=== PATIENT | female | born 1980 | race Caucasian/White ===

== ENCOUNTER 2020-03-15 07:21 | Emergency (ER) | payer BC, SELFPAY ==
[2020-03-15 07:30] VITALS: BP 129/85; PULSE 103; RESP 18; O2SAT 100; BMI 20.9
--- NOTE | 2020-03-15 07:33 | W.ED.GENADLT ---
HPI - General Adult General: Chief complaint: General Medical Stated complaint: hemorrhoids Time Seen by Provider: 03/15/20 07:29 History of Present Illness: HPI narrative: 39-year-old female comes in with extremely painful hemorrhoids at last several days unable to sit difficulty walking. They have not been bleeding but she has had extreme pain. She has a referral to Dr. Dunlap to have a hemorrhoid ectomy or least to be evaluated for it however she comes in today because of the severe pain for incision and drainage of likely thrombosed hemorrhoids. She has had problems in the past is been able to treat him with [id number] medication successfully. Noted she is a little bit tachycardic when she first got here. When discussing this with her she is requesting sedation for the procedure. Associated symptoms: Deny chest pain, dyspnea, malaise, nausea, rash or vomiting Review of Systems Const: Denies: fever(s), chills, body aches, change in appetite, fatigue or malaise ENMT: Denies: throat pain, ear or mastoid pain, nasal discharge or nasal congestion Card: Denies: chest pain, edema, dyspnea on exertion or orthopnea Resp: Denies: dyspnea, productive cough or non-productive cough GI: Reports: rectal pain (Severe rectal pain no difficulty walking or sitting.); Denies: abdominal pain, nausea, vomiting, hematemesis, coffee ground emesis, diarrhea, constipation, bloating, hematochezia or melena : Denies: flank pain, difficulty voiding, dysuria, urinary frequency or urinary urgency Skin/Breast: Denies: rash or pruritus PFSH ED PFSH: Medical History (Updated 03/15/20 @ 09:02 by Garrick Carroll DO) Anxiety and depression Surgical History (Updated 03/15/20 @ 07:58 by Garrick Carroll DO) S/P left knee arthroscopy Social History (Updated 03/15/20 @ 07:59 by Garrick Carroll DO) Smoking and tobacco status: current some day smoker Alcohol intake: current Alcohol intake frequency: holidays/special occasions only Physical Exam Const: COMMON NORMALS: no acute distress GENERAL APPEARANCE: cooperative and comfortable ORIENTATION/CONSCIOUSNESS: Yes awake, Yes oriented to person, Yes oriented to place and Yes oriented to time HENMT: COMMON NORMALS: normocephalic, atraumatic, hearing grossly normal bilaterally, external ears normal and oropharynx normal HEAD & SCALP: normocephalic and atraumatic EXTERNAL EAR: Yes external ears normal Eye: COMMON NORMALS: Equal, round and reactive pupils present, EOMs intact bilaterally, conjunctivae normal and no scleral icterus CONJUNCTIVA: Yes conjunctivae normal PUPIL: Yes Equal, round and reactive pupils present Neck/C-Spine: COMMON NORMALS: full ROM, no lymphadenopathy, supple and no JVD Lymph: LYMPHATIC: no lymphadenopathy noted and no lymphedema noted Resp: COMMON NORMALS: normal respiratory effort, No retractions, No use of accessory muscles and clear to auscultation bilaterally AUSCULTATION: clear to auscultation bilaterally Cardio: COMMON NORMALS: no JVD, regular rate, regular rhythm and No murmurs present (Cardio) RATE: regular rate RHYTHM: regular rhythm GI: COMMON NORMALS: Soft to palpation and No hepatosplenomegaly present AUSCULTATION: Yes normoactive bowel sounds PALPATION: Yes Soft to palpation, No Tenderness to palpation present (GI), No Guarding due to palpation present (GI) and Yes No hepatosplenomegaly present RECTAL EXAM: External hemorrhoid(s) present (Multiple external hemorrhoids with 1 thrombosed at the 9 o'clock position small hemorrhoidal tags noted as well that are noninflamed or thrombosed.) Extremity: COMMON NORMALS: normal to inspection, capillary refill normal, no clubbing, cyanosis or edema, no calf tenderness and no pedal edema Neuro: SENSORIUM/ORIENTATION: Yes oriented to person, Yes oriented to place and Yes oriented to time Skin: COMMON NORMALS: no rashes or lesions noted GENERAL SKIN EXAM: no rashes or lesions noted Procedures Abscess I/D Site: other (Thrombosed hemorrhoid) Side (if applicable): right (Right side 9 o'clock position) Sedation/analgesia: other (Ketamine 200 mg) Local Anesthetic: lidocaine 2% Amount of anesthesia used (mL): 1 Technique: incised with #11 blade (3 small nonthrombosed hemorrhoids at the 12 and 3 o'clock position. At the 9 o'clock position there is a large inflamed thrombosed hemorrhoid it was incised with 11 blade after local anesthesia applied expressed large amount of clot rectal exam done no internal hemorrhoids noted. ) Amount of fluid expressed (mL): 2 Irrigation: No Packing used?: none Complications: pain Procedural Sedation Indication: other (Drainage of thrombosed hemorrhoid) Time of Last PO Intake: 21:00 Preparation: diagnostic cardiac sonographer applied, pulse oximeter, suction/airway equipment at bedside and IV secured Ketamine: IV Ketamine dose (mg): 200 Patient Tolerated Procedure: well and no complications Complications: none Course Vital Signs: Vital signs: Vital Signs Pulse Rate 91 03/15/20 10:18 Respiratory Rate 18 03/15/20 10:18 Blood Pressure 122/82 03/15/20 10:18 Pulse Oximetry 98 03/15/20 10:18 MDM - General Adult MDM Narrative: Medical decision making narrative: Patient had previously had this problem was quite anxious. She was insistent on some form of sedation for the procedure itself. We discussed the risks and benefits she wished to go forward with a mild conscious sedation. We did ketamine 200 mg. She tolerated well see the procedure note. Patient tolerated procedure well small amount of bleeding from the hemorrhoid after procedure patient has referral to Dr. Dunlap from a self-referral earlier this week and she is going to contact them for evaluation for hemorrhoidectomy. Discharge Plan Discharge Patient Disposition: Home, Self-Care Clinical Impression: External hemorrhoid, thrombosed Condition: Stable Prescriptions: New hydrocodone-acetaminophen 5-325 mg tablet 1 tab PO Q6H PRN (Reason: pain) Qty: 15 RF: 0 Anusol-HC 2.5 % cream with perineal applicator 1 applic MI Q6H PRN (Reason: hemorrhoids) Qty: 30 RF: 0 No Action Lexapro 20 mg Tablet 20 mg PO DAILY RF: 0 amitriptyline 75 mg PO BEDTIME RF: 0 Discharge Orders: Discharge Order (Routine); Ordered 03/15/20 Ordered By: Garrick Carroll Referrals: Garrick Carroll, DO [Emergency Provider] - Discharge Diet: Usual diet Discharge Activity: Increase activity as tolerated Patient Instructions: Hemorrhoids (ED) Activity Restrictions/Additional Instructions: See Dr. Dunlap as planned for consideration of hemorrhoidectomy. Discharge Date/Time: 03/15/20 10:20 Coding Level of Care Code ED Independent Jeweler for Chg Fwd Exam Comprehensive
[2020-03-15 08:01] VITALS: BP 129/85; PULSE 103; RESP 16; O2SAT 94
[2020-03-15] MEDS: ketorolac 30 mg/mL INJ IVP (08:26)
[2020-03-15] MEDS: lidocaine 2% INJ 20 mL INJECTION (08:28)
[2020-03-15 09:02] VITALS: BP 132/87; PULSE 105; RESP 15; O2SAT 99
[2020-03-15 10:18] VITALS: BP 122/82; PULSE 91; RESP 18; O2SAT 98
--- NOTE | 2020-03-20 14:54 | DCPLANNER ---
labor relations manager was asked to schedule a follow up appointment for patient with general surgery. labor relations manager called [facility], spoke with Zuly, gave clinic patients information. A follow up appointment was scheduled for Wednesday, February at 9:[address] Terrazas. Clinic will call patient with appointment information.
--- NOTE | 2020-03-21 14:22 | DCPLANNER ---
Patient has a follow up appointment scheduled for Wednesday, March 22, 2020 at 9:[address] Terrazas. Clinic will call patient with appointment information.
--- NOTE | 2020-03-27 14:57 | DCPLANNER ---
Patient did attend appointment scheduled for 03.22.20 with Corporate Relations Director clinic.
== END 2020-03-15 10:20 | disposition home or self-care (01) ==
PROVIDERS: Emergency Provider Family Medicine; Family Provider Family Medicine
DX: K64.5 Perianal venous thrombosis (principal); F17.210 Nicotine dependence, cigarettes, uncomplicated
CPT/HCPCS: 12345; 46083; 96374; 96375; 99282; 99284; J1885; J2001; J3490

== ENCOUNTER 2020-03-27 06:28 | Day surgery (SDC) | payer SELFPAY ==
[2020-03-26 10:54] VITALS: BMI 20.7
[2020-03-27] VITALS (14 sets, daily range): BP systolic 123–143; BP diastolic 75–103; PULSE 79–93; RESP 16–20; TEMP 36.3–36.7; O2SAT 97–100
[2020-03-27 06:58] LABS: OR HCG Qualitative Urine Negative (Negative)
[2020-03-27] MEDS: Fleet Enema 133 mL Enema PR (07:04)
[2020-03-27] MEDS: sodium chloride 0.9% 1,000 ML 30 ML IV (07:04)
--- NOTE | 2020-03-27 07:09 | ANES.PREANE2 ---
Pre-Anesthetic Assessment Pre-Anesthetic Assessment: Height/Weight: Height 1.6 m Weight 53.07 kg Temp Pulse Resp BP Pulse Ox 98.0 F 93 18 129/80 97 03/27/20 06:53 03/27/20 06:53 03/27/20 06:53 03/27/20 06:53 03/27/20 06:53 Preop Diagnosis: Thrombosed hemorrhoids, perianal pain Proposed Procedure: Operation Date: 03/27/20 08:00 Proposed Procedures p Exam Under Anesthesia/Rectal 11794 33150 K64.5(Not Applicable) - Harry Terrazas MD s Hemorroidectomy/Possible(Not Applicable) - Harry Terrazas MD Familial anesthetic complications: None Was Beta Kianna taken within 24 hours: N/A Last intake: Intake Last Liquid Date 03/26/20 Last Liquid Time 21:00 Last Solid Date 03/26/20 Last Solid Time 20:00 Social: Social History: Tobacco Exam: Pre-Anes Outpt Exam: alert, oriented x 3, clear to auscultation bilaterally and regular rate & rhythm Airway: Cervical ROM: WNL MP: 1 Dentition: Full Anesthetic Plan: ASA status: 1 Anesthesia: General Risk of > 500 ml blood loss (7ml/kg in children): No Meds/Allergies Current Medications: Current Medications Generic Name Dose Route Start Last Admin Trade Name Freq PRN Reason Stop Dose Admin Sodium Chloride 1,000 mls @ 30 ml s/hr 03/27/20 06:45 03/27/20 07:04 Sodium Chloride 0.9% IV 03/28/20 06:44 30 mls/hr .Q24H BEATRIZ Administration PFSH Anesthesia PFSH: Medical History Anxiety and depression Surgical History S/P left knee arthroscopy Family History Other Chronic kidney disease (CKD) Diabetes Hypertension Social History Smoking and tobacco status: current every day smoker cigarettes Packs smoked per day: 1 Alcohol intake: never Female Reproductive History: Date of last menstrual period: 03/19/20 Data Anesthesia Other Labs: Laboratory Results - last 48 hr 03/27/20 06:45 Urine HCG, Qual Negative Cardiac Studies: No Data to Display
--- NOTE | 2020-03-27 08:25 | PM.OP ---
Operative Report Date of procedure: March 27, 2020 Pre-op Diagnosis: Thrombosed hemorrhoids, perianal pain Post-op Diagnosis: Grade 2 internal hemorrhoids x2 Thrombosed external hemorrhoid Procedure Done: Rectal exam under anesthesia Excision of thrombosed hemorrhoids Banding of hemorrhoids x2 Specimens removed/disposition: Hemorrhoidal tissue Surgeon: Harry Terrazas Anesthesia: General Estimated blood loss (mL): 5 Condition: stable Disposition: PACU Procedure: The patient was taken to the operating room and placed in the lateral position under general anesthesia after IV antibiotic had been administered. The perianal area was prepped and draped in a sterile manner. 10 cc of 0.5% Marcaine was infiltrated for a perianal block. Rectal exam under anesthesia revealed grade 2 internal hemorrhoids as well as a thrombosed external hemorrhoid. Using electrocautery the thrombosed external hemorrhoid was excised and sent to pathology. Hemostasis was ensured with cautery and subcutaneous tissues approximated interrupted 3-0 Vicryl suture and skin was closed using interrupted 3-0 chromic suture. 2 separate grade 2 internal hemorrhoids were identified and these were grasped and hemorrhoidal rubber bands were applied proximal to the dentate line. An Adaptic gauze was placed in the anal canal and patient was transferred to recovery room in stable condition after extubation.
[2020-03-27] MEDS: fentaNYL 50 mcg/mL INJ 2mL IVP ×2 (08:32→08:37)
[2020-03-27] MEDS: morphine 4 mg/mL SDV 1 mL 2 MG IVP ×2 (08:44→08:49)
[2020-03-27] MEDS: HYDROcodone-acetaminophen 5-325 mg Tablet 1 TAB PO (09:04)
--- NOTE | 2020-03-28 19:12 | W.PM.OPSUD ---
Surgery/Procedure H&P Update DATE OF PROCEDURE: March 28, 2020 DATE H&P PERFORMED: 03/22/20 H&P UPDATE INFORMATION: I have reviewed H&P completed within last 30 days, I have examined patient prior to procedure and No changes to prior documentation PREOP DIAGNOSIS: Thrombosed hemorrhoids, perianal pain PLANNED PROCEDURE: Operation Date: 03/27/20 08:00 Proposed Procedures p Exam Under Anesthesia/Rectal [id number] K64.5(Not Applicable) - Harry Terrazas MD s Hemorroidectomy/Possible(Not Applicable) - Harry Terrazas MD
== END 2020-03-27 10:00 | disposition home or self-care (01) ==
PROVIDERS: Anesthesiology; PCP Family Medicine; Visit Provider Surgery
PROC: (CPT 46221; principal; 2020-03-27 08:00)
PROC: (CPT 46221; 2020-03-27 08:00)
DX: K64.1 Second degree hemorrhoids (principal); K64.5 Perianal venous thrombosis; F17.210 Nicotine dependence, cigarettes, uncomplicated
CPT/HCPCS: 46221; 46320; 12345; 81025; 84703; 88304; 96365; J0131; J0690; J2270; J2704; J3010; J3490; J7030

== ENCOUNTER 2020-05-03 20:40 | Observation (INO) | payer SELFPAY ==
--- NOTE | 2020-05-03 20:54 | CTR_ITS ---
PROCEDURE INFORMATION: Exam: CT Abdomen And Pelvis With Contrast Exam date and time: 05/03/2020 9:45 PM Age: 40 years old Clinical indication: Abdominal pain; Generalized; Additional info: Abd pain TECHNIQUE: Imaging protocol: Computed tomography of the abdomen and pelvis with intravenous contrast. Axial, coronal and sagittal reformatted images were created and reviewed. Radiation optimization: All CT scans at this facility use at least one of these dose optimization techniques: automated exposure control; mA and/or kV adjustment per patient size (includes targeted exams where dose is matched to clinical indication); or iterative reconstruction. Contrast material: OMNI 300; Contrast volume: 75 ml; Contrast route: INTRAVENOUS (IV); [place] [facility] [place] 04/08/[place] 2:45 PM RADIATION DOSE METRICS: Total DLP (mGy-cm): 305.11 FINDINGS: Liver: Unremarkable. Gallbladder and bile ducts: No radiodense gallstones. No biliary ductal dilatation. Pancreas: Unremarkable. Spleen: Unremarkable. Adrenals: Unremarkable. Kidneys and ureters: No mass. No radiodense calculi. No hydronephrosis. Stomach and bowel: No bowel wall thickening. No obstruction. No pneumatosis. Appendix: Dilated, thickwalled, hyperemic appendix with mild periappendiceal inflammatory change. Intraperitoneal space: Trace nonspecific free pelvic fluid, likely physiologic and/or reactive. No organized fluid collection. No free air. Vasculature: Unremarkable. No aneurysm. Lymph nodes: No pathologically enlarged lymph nodes. Bladder: Unremarkable. Reproductive: Probable involuting left ovarian corpus luteal cyst. Bones/joints: No acute osseous abnormality. Soft tissues: Breast implants in place. CT/CT abdomen pelvis w con* [id number] IMPRESSION: 1. Acute appendicitis, as described above. No abscess, obstruction or free air. 2. Additional findings, as above. Radiation Dose CTDIVOL = (mGy): DLP = 305.11 (mGy-cm)
[2020-05-03 20:59] VITALS: BP 119/69; PULSE 114; RESP 20; TEMP 36.8; O2SAT 100; BMI 20.9
--- NOTE | 2020-05-03 21:09 | W.ED.ABDPA2 ---
HPI - Abdominal Pain General: Chief Complaint: Abdominal Pain Stated Complaint: AB PAIN Time Seen by Provider: 05/03/20 21:01 History of Present Illness: HPI narrative: 40-year-old female presents the emergency room with abdominal pain and bloating. Over the last 24 hours she has been having a fever at home yesterday and through the night last night she had multiple bowel movements which she described as acholic and just liquid. Around 830 9:00 this morning she stopped having any bowel movements and now is having severe abdominal pain and increasing bloating. She is also been running a fever had a temp at home of 100.6. She denies any dysuria urgency or frequency no vaginal discharge or bleeding. She does not believe that she is . She has not had any hematemesis or coffee-ground emesis no respiratory symptoms. MD elicited complaint: abdominal pain Pertinent past history: other (Hemorrhoid surgery earlier this year, exposure to E. coli in a contaminated well at her workplace.) Onset (ago): day(s) Pain Consistency: constant Location: Diffuse Severity: severe Quality: cramping Radiation: none Migration to: no migration Exacerbating factors: movement Relieving factors: rest Associated Symptoms: Reports change in stool character, GI cramping, diarrhea, dyspepsia, fever(s), loose stools and nausea; Denies dysuria, heartburn, hematochezia, hematuria, hematemesis, fecal incontinence, melena, poor appetite and vomiting Related Data: Date of Last Menstrual Period: 04/17/20 Review of Systems Const: Reports: fever(s) ENMT: Denies: throat pain, ear or mastoid pain, nasal discharge or nasal congestion Card: Denies: chest pain, edema, dyspnea on exertion or orthopnea Resp: Denies: dyspnea, productive cough or non-productive cough GI: Reports: nausea, diarrhea, GI cramping and change in stool character; Denies: vomiting, hematemesis, heartburn, fecal incontinence, hematochezia or melena : Denies: dysuria or hematuria Skin/Breast: Denies: rash or pruritus PFS ED PFSH: Medical History Anxiety and depression Surgical History S/P hemorrhoidectomy (03/27/20) S/P left knee arthroscopy Family History Other Chronic kidney disease (CKD) Diabetes Hypertension Social History Smoking and tobacco status: current every day smoker cigarettes Packs smoked per day: 1 Alcohol intake: never Female Reproductive History: Date of last menstrual period: 04/17/20 Physical Exam Const: COMMON NORMALS: no acute distress GENERAL APPEARANCE: cooperative and comfortable ORIENTATION/CONSCIOUSNESS: Yes awake, Yes oriented to person, Yes oriented to place and Yes oriented to time HENMT: COMMON NORMALS: normocephalic and atraumatic HEAD & SCALP: normocephalic and atraumatic Eye: COMMON NORMALS: Equal, round and reactive pupils present, EOMs intact bilaterally, conjunctivae normal and no scleral icterus CONJUNCTIVA: Yes conjunctivae normal PUPIL: Yes Equal, round and reactive pupils present Neck/C-Spine: COMMON NORMALS: full ROM, no lymphadenopathy, supple and no JVD Lymph: LYMPHATIC: no lymphadenopathy noted and no lymphedema noted Resp: COMMON NORMALS: normal respiratory effort, No retractions, No use of accessory muscles and clear to auscultation bilaterally AUSCULTATION: clear to auscultation bilaterally Cardio: COMMON NORMALS: no JVD, regular rate, regular rhythm and No murmurs present (Cardio) RATE: regular rate RHYTHM: regular rhythm GI: COMMON NORMALS: No hepatosplenomegaly present AUSCULTATION: Yes Hypoactive bowel sounds present (nearly absent) and Yes High-pitched bowel sounds present PALPATION: Yes Tenderness to palpation present (GI) Details: LLQ and RLQ, Yes Guarding due to palpation present (GI) in the RLQ, Yes Rigid due to palpation Location: RLQ and Yes No hepatosplenomegaly present PERCUSSION: tympanic to percussion Extremity: COMMON NORMALS: normal to inspection, capillary refill normal, no clubbing, cyanosis or edema, no calf tenderness and no pedal edema Neuro: SENSORIUM/ORIENTATION: Yes oriented to person, Yes oriented to place and Yes oriented to time Skin: COMMON NORMALS: no rashes or lesions noted GENERAL SKIN EXAM: no rashes or lesions noted Course Vital Signs: Vital signs: Vital Signs Temperature 98.6 F 05/04/20 04:14 Pulse Rate 94 05/04/20 04:14 Respiratory Rate 18 05/04/20 04:14 Blood Pressure 92/54 05/04/20 04:14 Pulse Oximetry 98 05/04/20 04:14 MDM - Abdominal Pain MDM Narrative: Medical decision making narrative: CT shows acute appendicitis with reactive ileus. I looked at it and thought there was a large amount of air in the small bowel but there was no free air discussed with the radiologist he felt it was that there was no bowel obstruction but there was an ileus here. Discussed with the patient. Gave her dose of Zosyn. Will admit her discussed with Dr. Terrazas he plans to do appendectomy in the morning. Lab Data: Labs: Lab Results 05/03/20 05/03/20 05/03/20 Range/Units 21:10 21:10 21:10 WBC 16.3 H (4.0-10.0) 10^3/ uL RBC 4.37 (4.1-5.3) 10^6/u L Hgb 13.7 (11.5-15.3) g/dL Hct 40.3 (37.0-47.0) % MCV 92.2 (81-99) fL MCH 31.4 (28.0-34.0) pg MCHC 34.0 (30.0-36.0) g/dL RDW 12.1 (12.1-15.1) % Plt Count 176 (130-400) 10^3/c mm MPV 10.3 (7.4-10.4) fL Neut % (Auto) 87.4 % Lymph % (Auto) 4.2 % Jennings % (Auto) 7.8 % Eos % (Auto) 0.2 % Baso % (Auto) 0.1 % Neut # (Auto) 14.24 H (1.8-7.7) 10^3/u L Lymph # (Auto) 0.7 L (0.8-4.8) 10^3/u L Jennings # (Auto) 1.3 H (0.2-0.9) 10^3/u L Eos # (Auto) 0.0 (0.0-0.8) 10^3/u L Baso # (Auto) 0.0 (0.0-0.1) 10^3/u L Nucleated RBC % (a uto) 0 % Nucleated RBCs # 0.0 /100WBC Sodium 132 L (136-145) mmol/L Potassium 3.4 L (3.5-5.1) mmol/L Chloride 96 L (98-107) mmol/L Carbon Dioxide 20 L (22-29) mmol/L Anion Gap 19.4 H (5-19) BUN 10 (6-20) mg/dL Creatinine 0.8 (0.5-0.9) mg/dL GFR Calculation 80.3 L (90-130) mL/min Glucose 115 (65-115) mg/dL Calculated Osmolal ity 271 L (285-295) mOsm/k g Lactic Acid 0.2 L (0.5-2.2) mmol/L Calcium 10.1 (8.5-10.5) mg/dL Total Bilirubin 1.8 H (0.15-1.2) mg/dL AST 15 (0-32) U/L ALT 10 (0-33) U/L Alkaline Phosphata se 70 (35-105) IU/L Total Protein 7.3 (6.6-8.7) g/dL Albumin 4.9 (3.5-5.2) g/dL Globulin 2.4 (1.3-4.6) g/dL Lipase 14 (13-60) U/L HCG, Qual (Negative) Urine Color (Yellow) Urine Appearance (CLEAR) Urine pH (5-7) Ur Specific Gravit y (1.005-1.030) Urine Protein (Negative) Urine Glucose (UA) (Normal) Urine Ketones (Negative) Urine Blood (Negative) Urine Nitrate (Negative) Urine Bilirubin (NEGATIVE) Prot Sulfosalicyli c Acd (Negative) Urine Urobilinogen (Negative) mg/dL Ur Leukocyte Chandrika ase (Negative) Urine RBC (0-2) /hpf Urine WBC (0-5) /hpf Ur Squamous Epith Cells (0-5) Amorphous Sediment Urine Bacteria (NONE) 05/03/20 05/03/20 Range/Units 22:12 22:12 WBC (4.0-10.0) 10^3/ uL RBC (4.1-5.3) 10^6/u L Hgb (11.5-15.3) g/dL Hct (37.0-47.0) % MCV (81-99) fL MCH (28.0-34.0) pg MCHC (30.0-36.0) g/dL RDW (12.1-15.1) % Plt Count (130-400) 10^3/c mm MPV (7.4-10.4) fL Neut % (Auto) % Lymph % (Auto) % Jennings % (Auto) % Eos % (Auto) % Baso % (Auto) % Neut # (Auto) (1.8-7.7) 10^3/u L Lymph # (Auto) (0.8-4.8) 10^3/u L Jennings # (Auto) (0.2-0.9) 10^3/u L Eos # (Auto) (0.0-0.8) 10^3/u L Baso # (Auto) (0.0-0.1) 10^3/u L Nucleated RBC % (a uto) % Nucleated RBCs # /100WBC Sodium (136-145) mmol/L Potassium (3.5-5.1) mmol/L Chloride (98-107) mmol/L Carbon Dioxide (22-29) mmol/L Anion Gap (5-19) BUN (6-20) mg/dL Creatinine (0.5-0.9) mg/dL GFR Calculation (90-130) mL/min Glucose (65-115) mg/dL Calculated Osmolal ity (285-295) mOsm/k g Lactic Acid (0.5-2.2) mmol/L Calcium (8.5-10.5) mg/dL Total Bilirubin (0.15-1.2) mg/dL AST (0-32) U/L ALT (0-33) U/L Alkaline Phosphata se (35-105) IU/L Total Protein (6.6-8.7) g/dL Albumin (3.5-5.2) g/dL Globulin (1.3-4.6) g/dL Lipase (13-60) U/L HCG, Qual Negative (Negative) Urine Color Yellow (Yellow) Urine Appearance Clear (CLEAR) Urine pH 8 H (5-7) Ur Specific Gravit y 1.005 (1.005-1.030) Urine Protein Neg (Negative) Urine Glucose (UA) Norm (Normal) Urine Ketones 1+ H (Negative) Urine Blood 3+ H (Negative) Urine Nitrate Negative (Negative) Urine Bilirubin Neg (NEGATIVE) Prot Sulfosalicyli c Acd Negative (Negative) Urine Urobilinogen Norm (Negative) mg/dL Ur Leukocyte Chandrika ase Negative (Negative) Urine RBC 15-25 H (0-2) /hpf Urine WBC 0-4 H (0-5) /hpf Ur Squamous Epith Cells 5-10 H (0-5) Amorphous Sediment Not Reportable Urine Bacteria Trace (NONE) Discharge Plan Discharge Patient Disposition: Placed in Observation Admit Provider: Harry Terrazas Clinical Impression: Acute appendicitis Condition: Stable Referrals: Elizabeth Kennedy DO [Primary Care Provider] - Discharge Date/Time: 05/03/20 23:41 Coding Level of Care Code ED Team Assistant for Chg Fwd Exam Comprehensive
[2020-05-03] MEDS: ondansetron 2 mg/ML SDV 2 mL 4 MG IVP (21:14)
[2020-05-03 21:16] VITALS: RESP 18
[2020-05-03] MEDS: morphine 4 mg/mL SDV 1 mL 6 MG IVP (21:16)
[2020-05-03 21:38] VITALS: RESP 20
[2020-05-03] MEDS: HYDROmorphone 1 mg/mL INJ 1 mL IVP (21:38)
[2020-05-03 21:45] LABS: Alanine Aminotransferase 10 U/L (0-33); Albumin Level 4.9 g/dL (3.5-5.2); Alkaline Phosphatase 70 IU/L (35-105); Anion Gap 19.4 (5-19); Aspartate Amino Transferase 15 U/L (0-32); Blood Urea Nitrogen 10 mg/dL (6-20); Calcium 10.1 mg/dL (8.5-10.5); Carbon Dioxide 20 mmol/L (22-29); Chloride 96 mmol/L (98-107); Globulin 2.4 g/dL (1.3-4.6); Glomerular Filtration Rate 80.3 mL/min (90-130); Glucose 115 mg/dL (65-115); Lipase 14 U/L (13-60); Osmolality Calculated 271 mOsm/kg (285-295); Potassium 3.4 mmol/L (3.5-5.1); Sodium 132 mmol/L (136-145); Total Bilirubin 1.8 mg/dL (0.15-1.2); Total Protein 7.3 g/dL (6.6-8.7)
[2020-05-03] MEDS: iohexol 300 mg/mL 100 mL Btl IV (21:46)
[2020-05-03 21:56] LABS: Basophils % 0.1 %; Eosinophils % 0.2 %; Hematocrit 40.3 % (37.0-47.0); Hemoglobin 13.7 g/dL (11.5-15.3); Lymphocytes # 0.7 10^3/uL (0.8-4.8); Lymphocytes % 4.2 %; Mean Corpuscular Hemoglobin 31.4 pg (28.0-34.0); Mean Corpuscular Volume 92.2 fL (81-99); Mean Platelet Volume 10.3 fL (7.4-10.4); Monocytes # 1.3 10^3/uL (0.2-0.9); Monocytes % 7.8 %; Neutrophils # 14.24 10^3/uL (1.8-7.7); Neutrophils % 87.4 %; Nucleated Red Blood Cells % 0 %; Platelet Count 176 10^3/cmm (130-400); Red Blood Count 4.37 10^6/uL (4.1-5.3); Red Cell Distribution Width 12.1 % (12.1-15.1); White Blood Count 16.3 10^3/uL (4.0-10.0)
[2020-05-03 22:09] LABS: Lactic Sepsis W/Reflex 0.2 mmol/L (0.5-2.2)
[2020-05-03 22:17] VITALS: RESP 18; O2SAT 97
[2020-05-03] MEDS: HYDROmorphone 1 mg/mL INJ 1 mL 0.5 MG IVP (22:17)
[2020-05-03] MEDS: piperacillin-tazobactam 3.375 GM in sodium chloride 0.9% (plus) 50 ML IV (22:17)
[2020-05-03] MEDS: LORazepam 2 mg/mL INJ 1 mL 1 MG IVP (22:19)
[2020-05-03 22:24] LABS: HCG Qualitative Urine. Negative (Negative)
--- NOTE | 2020-05-03 22:48 | PC.NURSE ---
Verbal order per Trinh to D/C NG insertation and managment order along with all associated orders.
[2020-05-03] MEDS: potassium chloride premix 40 MEQ/100 ML PREMIX 25 MEQ IV (23:04)
[2020-05-03 23:10] VITALS: BP 115/65; PULSE 109; RESP 18; TEMP 36.8; O2SAT 98
[2020-05-03] MEDS: sodium chloride 0.9% 1,000 ML 75 ML IV (23:21)
[2020-05-03 23:41] LABS: Urine Appearance Clear (CLEAR); Urine Color Yellow (Yellow); pH Urine 8 (5-7)
[2020-05-03 23:42] LABS: Add Urine Microscopic? YES; Bilirubin Urine Neg (NEGATIVE); Blood Urine 3+ (Negative); Glucose Urine UA Norm (Normal); Ketones Urine 1+ (Negative); Leukocyte Esterase Urine Negative (Negative); Nitrate Urine Negative (Negative); Protein Urine Neg (Negative); Specific Gravity, Urine 1.005 (1.005-1.030); Sulfosalicylic Acid Urine Negative (Negative); Urobilinogen Urine Norm (Negative)
[2020-05-03 23:54] VITALS: BP 131/75; PULSE 106; RESP 22; TEMP 36.6; O2SAT 99
[2020-05-04] VITALS (15 sets, daily range): BP systolic 92–120; BP diastolic 54–83; PULSE 71–130; RESP 15–20; TEMP 35.8–37.1; O2SAT 98–100
[2020-05-04 00:03] LABS: Bacteria Urine TRACE; RBC Urine 15-25 /hpf (0-2); WBC Urine 0-4 /hpf (0-5)
[2020-05-04 00:04] LABS: Add Urine Culture? Yes
[2020-05-04] MEDS: D5-NS 0.45% + KCL 20 mEq 20 MEQ/1,000 ML BAG 125 MEQ IV (03:29)
[2020-05-04] MEDS: piperacillin-tazobactam 3.375 GM in sodium chloride 0.9% (plus) 50 ML IV (05:34)
[2020-05-04 07:16] LABS: Basophils % 0.1 %; Eosinophils # 0.1 10^3/uL (0.0-0.8); Eosinophils % 0.7 %; Hematocrit 33.4 % (37.0-47.0); Hemoglobin 11.2 g/dL (11.5-15.3); Lymphocytes # 1.1 10^3/uL (0.8-4.8); Lymphocytes % 8.3 %; Mean Corpuscular HGB Conc 33.5 g/dL (30.0-36.0); Mean Corpuscular Hemoglobin 31.5 pg (28.0-34.0); Mean Corpuscular Volume 94.1 fL (81-99); Mean Platelet Volume 10.7 fL (7.4-10.4); Monocytes # 0.8 10^3/uL (0.2-0.9); Monocytes % 6.6 %; Neutrophils # 10.57 10^3/uL (1.8-7.7); Neutrophils % 83.9 %; Nucleated Red Blood Cells % 0 %; Platelet Count 141 10^3/cmm (130-400); Red Blood Count 3.55 10^6/uL (4.1-5.3); Red Cell Distribution Width 12.2 % (12.1-15.1); White Blood Count 12.6 10^3/uL (4.0-10.0)
[2020-05-04 07:20] LABS: Alanine Aminotransferase 8 U/L (0-33); Albumin Level 3.5 g/dL (3.5-5.2); Alkaline Phosphatase 51 IU/L (35-105); Aspartate Amino Transferase 11 U/L (0-32); Blood Urea Nitrogen 7 mg/dL (6-20); Calcium 8.5 mg/dL (8.5-10.5); Carbon Dioxide 23 mmol/L (22-29); Chloride 106 mmol/L (98-107); Globulin 1.9 g/dL (1.3-4.6); Glomerular Filtration Rate 111.9 mL/min (90-130); Glucose 120 mg/dL (65-115); Osmolality Calculated 279 mOsm/kg (285-295); Sodium 136 mmol/L (136-145); Total Bilirubin 1.3 mg/dL (0.15-1.2)
[2020-05-04 07:25] LABS: Total Protein 5.4 g/dL (6.6-8.7)
--- NOTE | 2020-05-04 07:33 | PM.HP ---
Providers/Chief Complaint Admitting Physician: Harry Terrazas MD Primary Care Provider: Elizabeth Kennedy DO Chief Complaint: AB PAIN History of Present Illness Masha Phillips is a 40 year old female who presented to the ER last night with severe abdominal pain. Patient states that she had been having loose stools for the last 12 hours and subsequently developed abdominal pain which was generalized associated bloating. Pain does not radiate, no aggravating or relieving factors. Patient had some nausea due to pain but denies any vomiting. No fevers or chills. Review of Systems General: Reports: 10 or more systems reviewed and unremarkable except in HPI and below Medications/Allergies Home Medications Medication Instructions Recorded Confirmed Last Taken Type amitriptyline 75 mg PO DAILY 03/27/20 05/03/20 05/01/20 History Allergies Allergy/AdvReac Type Severity Reaction Status Date / Time No Known Allergies Allergy Verified 05/03/20 21:30 PFSH Acute PFSH: Medical History Anxiety and depression Surgical History History of breast implant S/P hemorrhoidectomy (03/27/20) S/P left knee arthroscopy Family History Other Chronic kidney disease (CKD) Diabetes Hypertension Social History Smoking and tobacco status: current every day smoker cigarettes Packs smoked per day: 1 Alcohol intake: never Female Reproductive History: Date of last menstrual period: 04/17/20 Vitals/I&O/Wt Last Vital Signs Temp 98.5 F 05/04/20 07:20 Pulse 87 05/04/20 07:20 Resp 17 05/04/20 07:20 BP 102/70 05/04/20 07:20 Pulse Ox 99 05/04/20 07:20 Weight last 48 hrs Weight 118 lb Physical Exam Narrative: EXAM NARRATIVE: HEENT: Normocephalic Eye: Sclera /conjunctiva normal Respiratory and chest: Bilateral clear breath sounds on auscultation Cardiovascular: Normal S1 and S2 heart sounds Abdomen: Soft to palpation, tender right lower quadrant Neurological: Oriented to place person and time Skin: Intact, no lesions appreciated on gross exam Data : 05/04/20 06:50 05/04/20 06:50 Micro: Microbiology 05/03/20 21:17 Blood Culture - Preliminary Blood SPECIMEN COLLECTED 05/03/20 21:10 Blood Culture - Preliminary Blood SPECIMEN COLLECTED A&P Assessment and plan (1) Acute appendicitis: 40-year-old female with right lower quadrant pain associated with nausea and leukocytosis with CT scan showing acute appendicitis Plan for laparoscopic possible open appendectomy Procedure, risks, benefits and alternatives have been discussed with the patient who wishes to proceed with surgery. Status: Acute Attestations Medical Necessity Statement*: Acute appendicitis Coding Level of Care Code Acute Disability Program Navigator for [facility] Fwd Diagnoses Acute appendicitis K35.80
--- NOTE | 2020-05-04 07:35 | PC.NURSE ---
Patient report given to Dea Causey from surgery, moved pt to surgery bed
[2020-05-04] MEDS: sodium chloride 0.9% 1,000 ML 30 ML IV (07:45)
--- NOTE | 2020-05-04 07:47 | P.ANESASSM_ITS ---
Pre-Anesthetic Assessment Pre-Anesthetic Assessment: Height/Weight: Height 1.6 m Weight 53.524 kg Temp Pulse Resp BP Pulse Ox 98.5 F 87 17 102/70 99 05/04/20 07:20 05/04/20 07:20 05/04/20 07:20 05/04/20 07:20 05/04/20 07:20 Preop Diagnosis: Acute appendicitis Proposed Procedure: Operation Date: 05/04/20 08:00 Proposed Procedures p Laparoscopic Appendectomy(Not Applicable) - Harry Terrazas MD Was Beta Kianna taken within 24 hours: N/A Last Intake: 00:00 Social: Social History: Tobacco and No alcohol Packs per day: 0.5 Exam: Pre-Anes Outpt Exam: alert, oriented x 3, clear to auscultation bilaterally and regular rate & rhythm Airway: Submandibular: WNL Cervical ROM: WNL MP: 2 Dentition: Full History/ROS: No significant history except as noted and No significant complaints Pulmonary: Pulmonary: None reported CV/HEM: CV/HEM: None reported : : None reported Hepatic: Hepatic: None reported GI: GI: None reported Metabolic: Metabolic: None reported Musc/skel: Musc/skel: None reported Neuropsych: Neuropsych: None reported Anesthetic Plan: ASA status: 2E Anesthesia: Anesthesia Evaluation and General Risk of > 500 ml blood loss (7ml/kg in children): No Meds/Allergies Current Medications: Current Medications Generic Name Dose Route Start Last Admin Trade Name Freq PRN Reason Stop Dose Admin Potassium Chloride /Dextrose/Sod Cl 20 meq in 1,000 m ls @ 125 mls/hr 05/03/20 23:40 05/04/20 03:29 D5-Ns 0.45% + Kranthi l 20 Meq IV 125 mls/hr .Q8H BEATRIZ Administration Piperacillin Sod/T azobactam 50 mls @ 12.5 mls /hr 05/04/20 06:00 05/04/20 05:34 Sod 3.375 gm/ So dium Chloride IV 12.5 mls/hr Q8H BEATRIZ Administration Protocol PFSH Anesthesia PFSH: Medical History Anxiety and depression Surgical History History of breast implant S/P hemorrhoidectomy (03/27/20) S/P left knee arthroscopy Family History Other Chronic kidney disease (CKD) Diabetes Hypertension Social History Smoking and tobacco status: current every day smoker cigarettes Packs smoked per day: 1 Alcohol intake: never Female Reproductive History: Date of last menstrual period: 04/17/20 Data Anesthesia CBC & Chem 7: 05/04/20 06:50 05/04/20 06:50 Other Labs: Laboratory Results - last 48 hr 05/03/20 05/03/20 05/03/20 21:10 21:10 21:10 WBC 16.3 H Corrected WBC RBC 4.37 Hgb 13.7 Hct 40.3 MCV 92.2 MCH 31.4 MCHC 34.0 RDW 12.1 Plt Count 176 MPV 10.3 Gran % Neut % (Auto) 87.4 Lymph % (Auto) 4.2 [place] % (Auto) 7.8 Eos % (Auto) 0.2 Baso % (Auto) 0.1 Neut # (Auto) 14.24 H Lymph # (Auto) 0.[address] [place] # (Auto) 1.3 H Eos # (Auto) 0.0 Baso # (Auto) 0.0 Absolute Gran (auto) Nucleated RBC % (auto) 0 Nucleated RBCs # 0.0 Sodium 132 L Potassium 3.4 L Chloride 96 L Carbon Dioxide 20 L Anion Gap 19.4 H BUN 10 Creatinine 0.8 GFR Calculation 80.3 L Glucose 115 Calculated Osmolality 271 L Lactic Acid 0.2 L Calcium 10.1 Total Bilirubin 1.8 H AST 15 ALT 10 Alkaline Phosphatase 70 Total Protein 7.3 Albumin 4.9 Globulin 2.4 Lipase 14 HCG, Qual Urine Color Urine Appearance Urine pH Ur Specific [place] Urine Protein Urine Glucose (UA) Urine Ketones Urine Blood Urine Nitrate Urine Bilirubin Prot Sulfosalicylic Acd Urine Urobilinogen Ur Leukocyte Esterase Urine RBC Urine WBC Ur Squamous Epith Cells Amorphous Sediment Urine Bacteria 05/03/20 05/03/20 05/04/20 22:12 22:12 04:48 WBC Cancelled Corrected WBC Cancelled RBC Cancelled Hgb Cancelled Hct Cancelled MCV Cancelled MCH Cancelled MCHC Cancelled RDW Cancelled Plt Count Cancelled MPV Cancelled Gran % Cancelled Neut % (Auto) Cancelled Lymph % (Auto) Cancelled [place] % (Auto) Cancelled Eos % (Auto) Cancelled Baso % (Auto) Cancelled Neut # (Auto) Cancelled Lymph # (Auto) Cancelled [place] # (Auto) Cancelled Eos # (Auto) Cancelled Baso # (Auto) Cancelled Absolute Gran (auto) Cancelled Nucleated RBC % (auto) Cancelled Nucleated RBCs # Cancelled Sodium Potassium Chloride Carbon Dioxide Anion Gap BUN Creatinine GFR Calculation Glucose Calculated Osmolality Lactic Acid Calcium Total Bilirubin AST ALT Alkaline Phosphatase Total Protein Albumin Globulin Lipase HCG, Qual Negative Urine Color Yellow Urine Appearance Clear Urine pH 8 H Ur Specific [place] 1.005 Urine Protein Neg Urine Glucose (UA) Norm Urine Ketones 1+ H Urine Blood 3+ H Urine Nitrate Negative Urine Bilirubin Neg Prot Sulfosalicylic Acd Negative Urine Urobilinogen Norm Ur Leukocyte Esterase Negative Urine RBC 15-25 H Urine WBC 0-4 H Ur Squamous Epith Cells 5-10 H Amorphous Sediment Not Reportable Urine Bacteria Trace 05/04/20 05/04/20 05/04/20 04:48 06:50 06:50 WBC 12.6 H Corrected WBC RBC 3.55 L Hgb 11.2 L Hct 33.4 L MCV 94.1 MCH 31.5 MCHC 33.5 RDW 12.2 Plt Count 141 MPV 10.7 H Gran % Neut % (Auto) 83.9 Lymph % (Auto) 8.3 [place] % (Auto) 6.6 Eos % (Auto) 0.7 Baso % (Auto) 0.1 Neut # (Auto) 10.57 H Lymph # (Auto) 1.1 [place] # (Auto) 0.8 Eos # (Auto) 0.1 Baso # (Auto) 0.0 Absolute Gran (auto) Nucleated RBC % (auto) 0 Nucleated RBCs # 0.0 Sodium Cancelled 136 Potassium Cancelled 4.0 Chloride Cancelled 106 Carbon Dioxide Cancelled 23 Anion Gap Cancelled 11.0 BUN Cancelled 7 Creatinine Cancelled 0.6 GFR Calculation Cancelled 111.9 Glucose Cancelled 120 H Calculated Osmolality Cancelled 279 L Lactic Acid Calcium Cancelled 8.5 Total Bilirubin Cancelled 1.3 H AST Cancelled 11 ALT Cancelled 8 Alkaline Phosphatase Cancelled 51 Total Protein Cancelled 5.4 L D Albumin Cancelled 3.5 Globulin Cancelled 1.9 Lipase HCG, Qual Urine Color Urine Appearance Urine pH Ur Specific [place] Urine Protein Urine Glucose (UA) Urine Ketones Urine Blood Urine Nitrate Urine Bilirubin Prot Sulfosalicylic Acd Urine Urobilinogen Ur Leukocyte Esterase Urine RBC Urine WBC Ur Squamous Epith Cells Amorphous Sediment Urine Bacteria Micro: Microbiology 05/03/20 21:17 Blood Culture - Preliminary Blood SPECIMEN COLLECTED 05/03/20 21:10 Blood Culture - Preliminary Blood SPECIMEN COLLECTED Cardiac Studies: No Data to Display
--- NOTE | 2020-05-04 08:47 | PM.OP ---
Operative Report Date of procedure: May 04, 2020 Pre-op Diagnosis: Acute appendicitis Post-op diagnosis: same Procedure Done: Laparoscopic appendectomy Specimens removed/disposition: Appendix Surgeon: Harry Terrazas Anesthesia: General Estimated blood loss (mL): 5 Condition: stable Disposition: PACU Procedure: The patient was taken to the Operating Room and intubated under general anesthesia after antibiotic had been administered. Using a 15 blade, a 1-cm infraumbilical incision was made and using open Adele technique, the peritoneal cavity was entered. A 12mm port with balloon was placed and 14 mm of pneumoperitoneum was created and 10-mm 30 degree scope was introduced. Two separate 5mm ports were placed in the left and right lower quadrant under direct visualization. The appendix was noted in the right lower quadrant and appeared acutely inflamed.. Using [place] forceps, an opening was made in the mesoappendix near the base of the appendix. An Endo KELSI stapler 45mm long 3.5mm blue load was introduced to divide the appendix at it's base. Using electrocautery, the mesoappendix including the appendicular artery was divided. There was no bleeding noted and the staple line appeared intact. The right lower quadrant was irrigated with saline and an EndoCatch bag was introduced to remove the appendix. All three ports were removed under direct visualization and there was no bleeding noted on the port sites. 10 0.5% Marcaine was infiltrated at the port sites. The fascia at the umbilical port was closed using figure of eight 0-Vicryl sutures and subcutaneous tissue was approximated using 3-0 Vicryl and skin at all 3 port sites was closed using 4-0 Monocryl and Dermabond.
--- NOTE | 2020-05-04 08:54 | PM.DCS ---
Discharge Providers Date of Admission: 05/03/20 22:36 Date of Discharge: May 04, 2020 Attending Provider at Admission: Harry Terrazas MD Attending Provider at Discharge: Harry Terrazas MD Primary Care Provider: Elizabeth Kennedy DO Diagnoses at Discharge Discharge Diagnosis (1) Acute appendicitis: Status: Acute Reason for Visit Reason for Visit: AB PAIN Hospital Course Hospital Course: The patient was admitted to the hospital overnight for IV antibiotics and underwent laparoscopic appendectomy the following morning. At time of discharge her vital signs are stable her pain is controlled and she was tolerating a clear liquid diet Discharge Data Data Completed and Pending: Completed Studies During Hospitalization Category Date Time Status CT abdomen pelvis w con* [id number] Stat Cat Scan 05/03/20 20:54 Completed Pending at discharge Category Date Time Status ES surgery / GI i mages Routine Exams 05/04/20 07:29 Taken Blood Culture Sta t Lab 05/03/20 21:17 Results Urine Culture Sta t Lab 05/03/20 22:12 Received Pathology: Surgic al [PTH] Routine Pth 05/04/20 08:25 Ordered Labs from last 24 hours 05/04/20 05/04/20 05/04/20 06:50 06:50 04:48 WBC 12.6 H Corrected WBC RBC 3.55 L Hgb 11.2 L Hct 33.4 L MCV 94.1 MCH 31.5 MCHC 33.5 RDW 12.2 Plt Count 141 MPV 10.7 H Gran % Neut % (Auto) 83.9 Lymph % (Auto) 8.3 [place] % (Auto) 6.6 Eos % (Auto) 0.7 Baso % (Auto) 0.1 Neut # (Auto) 10.57 H Lymph # (Auto) 1.1 [place] # (Auto) 0.8 Eos # (Auto) 0.1 Baso # (Auto) 0.0 Absolute Gran (aut o) Nucleated RBC % (a uto) 0 Nucleated RBCs # 0.0 Sodium 136 Cancelled Potassium 4.0 Cancelled Chloride 106 Cancelled Carbon Dioxide 23 Cancelled Anion Gap 11.0 Cancelled BUN 7 Cancelled Creatinine 0.6 Cancelled GFR Calculation 111.9 Cancelled Glucose 120 H Cancelled Calculated Osmolal ity 279 L Cancelled Lactic Acid Calcium 8.5 Cancelled Total Bilirubin 1.3 H Cancelled AST 11 Cancelled ALT 8 Cancelled Alkaline Phosphata se 51 Cancelled Total Protein 5.4 L D Cancelled Albumin 3.5 Cancelled Globulin 1.9 Cancelled Lipase HCG, Qual Urine Color Urine Appearance Urine pH Ur Specific Gravit y Urine Protein Urine Glucose (UA) Urine Ketones Urine Blood Urine Nitrate Urine Bilirubin Prot Sulfosalicyli c Acd Urine Urobilinogen Ur Leukocyte Chandrika ase Urine RBC Urine WBC Ur Squamous Epith Cells Amorphous Sediment Urine Bacteria 05/04/20 05/03/20 05/03/20 04:48 22:12 22:12 WBC Cancelled Corrected WBC Cancelled RBC Cancelled Hgb Cancelled Hct Cancelled MCV Cancelled MCH Cancelled MCHC Cancelled RDW Cancelled Plt Count Cancelled MPV Cancelled Gran % Cancelled Neut % (Auto) Cancelled Lymph % (Auto) Cancelled [place] % (Auto) Cancelled Eos % (Auto) Cancelled Baso % (Auto) Cancelled Neut # (Auto) Cancelled Lymph # (Auto) Cancelled [place] # (Auto) Cancelled Eos # (Auto) Cancelled Baso # (Auto) Cancelled Absolute Gran (aut o) Cancelled Nucleated RBC % (a uto) Cancelled Nucleated RBCs # Cancelled Sodium Potassium Chloride Carbon Dioxide Anion Gap BUN Creatinine GFR Calculation Glucose Calculated Osmolal ity Lactic Acid Calcium Total Bilirubin AST ALT Alkaline Phosphata se Total Protein Albumin Globulin Lipase HCG, Qual Negative Urine Color Yellow Urine Appearance Clear Urine pH 8 H Ur Specific Gravit y 1.005 Urine Protein Neg Urine Glucose (UA) Norm Urine Ketones 1+ H Urine Blood 3+ H Urine Nitrate Negative Urine Bilirubin Neg Prot Sulfosalicyli c Acd Negative Urine Urobilinogen Norm Ur Leukocyte Chandrika ase Negative Urine RBC 15-25 H Urine WBC 0-4 H Ur Squamous Epith Cells 5-10 H Amorphous Sediment Not Reportable Urine Bacteria Trace 05/03/20 05/03/20 05/03/20 21:10 21:10 21:10 WBC 16.3 H Corrected WBC RBC 4.37 Hgb 13.7 Hct 40.3 MCV 92.2 MCH 31.4 MCHC 34.0 RDW 12.1 Plt Count 176 MPV 10.3 Gran % Neut % (Auto) 87.4 Lymph % (Auto) 4.2 [place] % (Auto) 7.8 Eos % (Auto) 0.2 Baso % (Auto) 0.1 Neut # (Auto) 14.24 H Lymph # (Auto) 0.7 L [place] # (Auto) 1.3 H Eos # (Auto) 0.0 Baso # (Auto) 0.0 Absolute Gran (aut o) Nucleated RBC % (a uto) 0 Nucleated RBCs # 0.0 Sodium 132 L Potassium 3.4 L Chloride 96 L Carbon Dioxide 20 L Anion Gap 19.4 H BUN 10 Creatinine 0.8 GFR Calculation 80.3 L Glucose 115 Calculated Osmolal ity 271 L Lactic Acid 0.2 L Calcium 10.1 Total Bilirubin 1.8 H AST 15 ALT 10 Alkaline Phosphata se 70 Total Protein 7.3 Albumin 4.9 Globulin 2.4 Lipase 14 HCG, Qual Urine Color Urine Appearance Urine pH Ur Specific Gravit y Urine Protein Urine Glucose (UA) Urine Ketones Urine Blood Urine Nitrate Urine Bilirubin Prot Sulfosalicyli c Acd Urine Urobilinogen Ur Leukocyte Chandrika ase Urine RBC Urine WBC Ur Squamous Epith Cells Amorphous Sediment Urine Bacteria Vitals: Last Vital Signs Temp 98.8 F 05/04/20 07:40 Pulse 89 05/04/20 07:40 Resp 18 05/04/20 07:40 BP 108/72 05/04/20 07:40 Pulse Ox 100 05/04/20 07:40 Discharge Plan Discharge Patient Disposition: Home Condition: Stable Prescriptions: [place] 5-325 mg tablet 1 tab PO Q6H 7 Days Qty: 20 RF: 0 ciprofloxacin HCl [Cipro] 500 mg tablet 500 mg PO BID Qty: 10 RF: 0 metronidazole [Flagyl] 500 mg tablet 500 mg PO Q8H 5 Days Qty: 15 RF: 0 docusate sodium [Colace] 100 mg capsule 100 mg PO BID Qty: 30 RF: 0 ondansetron HCl [Zofran] 4 mg tablet 4 mg PO Q6H PRN (Reason: nausea and vomiting) Qty: 20 RF: 0 Continued amitriptyline 75 mg Tablet 75 mg PO DAILY RF: 0 Discharge Orders: Discharge Order (Routine); Ordered 05/04/20 Ordered By: Harry Terrazas Referrals: Harry Terrazas MD [Physician] - 2 weeks Elizabeth Kennedy DO [Primary Care Provider] - Discharge Diet: Advance as tolerated Activity Restrictions/Additional Instructions: 1. Up and walking as tolerated. 2. Ok to shower in 48 hours after surgery. 3. Remove Dermabond dressing in 7-10 days. 4. Do not lift more than 10 pounds. 5. Do not operate heavy machinery or drive while using pain medications. 6. Advised to return to ER or contact my office if there are any signs of infection like, increasing pain, fevers, chills, redness or drainage of pus. Discharge Attestations Time Spent in Discharge Care*: less than 30 min Quality Metrics Clinical Quality Measures During this hospital stay, did patient experience: None Coding Level of Care Code Acute Athletic Field Custodian for [facility] Diagnoses Acute appendicitis K35.80
--- NOTE | 2020-05-04 08:57 | SUR.PHASEI ---
0858 PT TO PACU AWAKE ALERT COUGHING OCC, PT HOB UP ABD SOFT FLAT WITH 3 SITES D/I SCDS ON IV PATENTPT ON RA WITH SATS 100% 0859 PT ALERT AND DENIES PAIN AND NAUSEA, VSS
--- NOTE | 2020-05-04 09:06 | SUR.PHASEI ---
PT AWAKE ALERT TAKING OCC ICE CHIPS PT DENIES PAIN AND NAUSEA, WAITING TO GIVE REPORT TO FLOOR NURSE PER PHONE.
--- NOTE | 2020-05-04 09:32 | SUR.PHASEI ---
0920 PT TO FLOOR PER CART, MOVED SELF TO BED WITH NO ASSIST HANDOFF TO NURSE REA AT BEDSIDE . BP 114/75, HR 71, RESP 16, SATS ON RA 100%
[2020-05-04] MEDS: morphine 4 mg/mL SDV 1 mL 2 MG IVP (09:34)
[2020-05-04] MEDS: HYDROcodone-acetaminophen 5-325 mg Tablet 1 TAB PO (10:59)
--- NOTE | 2020-05-04 11:29 | PC.NURSE ---
patient back from surgery,move to bed from Reba palomino&Ox4.3 stabs to abdomen, dry and AUTO BODY BUILDER APPRENTICE,call light in reach
--- NOTE | 2020-05-04 12:45 | PC.NURSE ---
IV dc'd x two, caths intact bleeding controlled with 2x2 and coban
--- NOTE | 2020-05-08 12:18 | PC.RESP ---
Smoking Cessation information sent to patient.
== END 2020-05-04 12:45 | disposition home or self-care (01) ==
LOC: ER 22:37 → MEDSURG 23:09
PROVIDERS: Emergency Medicine; Admitting Provider Surgery; Emergency Provider Family Medicine; PCP Family Medicine; Visit Provider Surgery
PROC: 0DTJ4ZZ Resection of Appendix, Percutaneous Endoscopic Approach (ICD-10-PCS; CPT 44970; principal; 2020-05-04 08:00)
DX: K35.80 Unspecified acute appendicitis (principal); F17.210 Nicotine dependence, cigarettes, uncomplicated
CPT/HCPCS: 44970; 12345; 36415; 74177; 80053; 81001; 81025; 83605; 83690; 85025; 87040; 87086; 88304; 96361; 96365; 96366; 96367; 96368; 96375; 96376; 99283; 99285; G0378; J0131; J1170; J2060; J2270; J2405; J2543; J2704; J2710; J3010; J3480; J3490; J7030; Q9967

== ENCOUNTER → 2021-06-24 08:34 | Outpatient (BNVA) | payer SELFPAY | PROVIDERS: PCP Family Medicine; Visit Provider Family Medicine | DX: F51.04 Psychophysiologic insomnia (principal); F41.9 Anxiety disorder, unspecified; F32.9 Major depressive disorder, single episode, unspecified; Z13.6 Encounter for screening for cardiovascular disorders; Z12.31 Encounter for screening mammogram for malignant neoplasm of breast | CPT/HCPCS: 80053; 80061; 85025 ==

== ENCOUNTER 2021-08-12 08:32 | Outpatient (CLI) | payer SELFPAY ==
--- NOTE | 2021-08-12 08:30 | MM_ITS ---
WS: [id number] BILATERAL SCREENING MAMMOGRAM WITH ALYSON DISPLACEMENT VIEWS. CAD PERFORMED. HISTORY: screening mammogram COMPARISON: None available. Bilateral craniocaudal and mediolateral like views are performed. Alyson displacement views in CC and MLO projection also performed. Breasts composition: The breasts are extremely dense, which lowers the sensitivity of mammography. P artially obscured ovoid mass at 6:00 RIGHT breast. Mass measures 2.4 x 2.3 x 1.8 cm. No architectural distortion. No suspicious calcifications. Implants are intact. MM/[place] [id number] IMPRESSION: BI-RADS: 0-Incomplete: Need additional imaging evaluation FOLLOW-UP: Need Additional Imaging RIGHT breast: Spot compression views (CC and MLO). True ML. Ultrasound to follo w if abnormality persists.
== END 2021-08-12 08:33 | disposition home or self-care (01) ==
LOC: RADSHAW 08:34
PROVIDERS: PCP Family Medicine; Visit Provider Family Medicine
DX: Z12.31 Encounter for screening mammogram for malignant neoplasm of breast (principal)
CPT/HCPCS: 77067

== ENCOUNTER 2021-10-07 08:46 | Outpatient (CLI) | payer SELFPAY ==
--- NOTE | 2021-10-07 | MM_ITS ---
ADDITIONAL VIEWS RIGHT BREAST RIGHT breast ultrasound, limited HISTORY: Additional imaging after screening mammogram from 08/12/2021. COMPARISON: 08/12/2021 Compression views right CC and MLO projection. True ML also submitted. Breasts are extremely dense. Possible mass along the anterior breast near 6:00. Margins are obscured. This could be normal fibroglandular tissue. Ultrasound to follow. RIGHT breast ultrasound, limited. Ultrasound is directed to the anterior RIGHT breast posterior to the nipple and at 6:00. There is very dense fibroglandular tissue but no mass identified. IMPRESSION: BI-RADS: 2-Benign FOLLOW-UP: 1 Year Follow-up [facility] MM/[place] [id number]
--- NOTE | 2021-10-07 09:00 | MM_ITS ---
WS: [id number] ADDITIONAL VIEWS RIGHT BREAST RIGHT breast ultrasound, limited HISTORY: Additional imaging after screening mammogram from 08/12/2021. COMPARISON: 08/12/2021 Compression views right CC and MLO projection. True ML also submitted. Breasts are extremely dense. Possible mass along the anterior breast near 6:00. Margins are obscured. This could be normal fibroglandular tissue. Ultrasound to follow. RIGHT breast ultrasound, limited. Ultrasound is directed to the anterior RIGHT breast posterior to the nipple and at 6:00. There is jerson y dense fibroglandular tissue but no mass identified.
== END 2021-10-07 08:47 | disposition home or self-care (01) ==
LOC: RADSHAW 08:49
PROVIDERS: PCP Family Medicine; Visit Provider Family Medicine
DX: R92.8 Other abnormal and inconclusive findings on diagnostic imaging of breast (principal)
CPT/HCPCS: 76642; 77065

== ENCOUNTER → 2022-02-18 15:48 | Outpatient (BNVA) | payer SELFPAY | PROVIDERS: PCP Family Medicine; Visit Provider Emergency Medicine | DX: R39.9 Unspecified symptoms and signs involving the genitourinary system (principal); N39.0 Urinary tract infection, site not specified | CPT/HCPCS: 81000 ==

== ENCOUNTER 2022-12-16 09:30 | Outpatient (CLI) | payer SELFPAY ==
--- NOTE | 2022-12-16 09:46 | MM_ITS ---
WS: [id number] BILATERAL SCREENING DIGITAL BREAST MAMMOGRAPHY WITH ALYSON DISPLACEMENT VIEWS. CAD PERFORMED. HISTORY: SCREENING COMPARISON: 10/07/2021, 08/12/2021 Bilateral craniocaudal and mediolateral oblique views are performed with tomosynthesis and SM. Alyson displacement views in CC and MLO projection also performed. Breasts composition: The breasts are extremely dense, which lowers the sensitivity of mammography. I mplants are intact. No capsular contraction or implant collapse. Very dense fibroglandular tissue. MM/[place] [id number] IMPRESSION: BI-RADS: 2-Benign FOLLOW-UP: 1 Year Follow-up
== END 2022-12-16 09:31 | disposition home or self-care (01) ==
PROVIDERS: PCP Family Medicine; Visit Provider Family Medicine
DX: Z12.31 Encounter for screening mammogram for malignant neoplasm of breast (principal)
CPT/HCPCS: 77063; 77067

== ENCOUNTER 2023-12-20 09:30 | Outpatient (CLI) | payer SELFPAY ==
--- NOTE | 2023-12-20 09:30 | MM_ITS ---
WS: [email or web address] VIEWS: MLO and CC views both breasts. 3D digital tomosynthesis is also included in this exam. Comparison made with prior exam of 08/12/2021, 10/07/2021, 12/16/2022. Findings: There was no sign of mass, architectural distortion or suspicious calcification in either breast. Int act bilateral breast implants noted. The breasts are extremely dense which lowers the sensitivity of mammography. Impression: MM/[place] [id number] BI-RADS: 2-Benign finding. FOLLOW-UP: 1 Year Follow-up This mammogram was also analyzed by the Computer Aided Detection System R2 Imag e Manager Intermediate.
== END 2023-12-20 09:31 | disposition home or self-care (01) ==
LOC: RAD 09:31
PROVIDERS: PCP Family Medicine; Visit Provider Family Medicine
DX: Z12.31 Encounter for screening mammogram for malignant neoplasm of breast (principal)
CPT/HCPCS: 77063; 77067

== ENCOUNTER 2024-12-28 08:01 | Outpatient (CLI) | payer BC, SELFPAY ==
--- NOTE | 2024-12-28 08:05 | MM_ITS ---
WS: [id number] BILATERAL SCREENING DIGITAL BREAST MAMMOGRAPHY WITH ALYSON DISPLACEMENT VIEWS. CAD PERFORMED. HISTORY: SCREENING COMPARISON: 12/20/2023 Bilateral craniocaudal and mediolateral oblique views are performed with tomosynthesis and SM. Alyson displacement views in CC and MLO projection also performed. Breasts composition: The breasts are extremely dense, which lowers the sensitivity of mammography. Breast implants are intact and symmetric bilaterally. Scattered asymmetries. No suspicious mass. No suspicious grouping of calcifications. MM/MM scr tomosynthesis [id number] IMPRESSION: BI-RADS: 2 - Benign FOLLOW-UP: 1 Year Follow-up
== END 2024-12-28 08:02 | disposition home or self-care (01) ==
PROVIDERS: PCP Family Medicine; Visit Provider Family Medicine
DX: Z12.31 Encounter for screening mammogram for malignant neoplasm of breast (principal); R92.343 Mammographic extreme density, bilateral breasts; Z98.82 Breast implant status; N64.89 Other specified disorders of breast
CPT/HCPCS: 77063; 77067